=== PATIENT | female | born 1970 | race Caucasian/White ===

== ENCOUNTER 2020-10-09 08:06 | Day surgery (SDCO) | payer OTHER ==
[~2020-10-09] VITALS: Ht 165.1 cm; Wt 65.8 kg
[~2020-10-09 08:06] MED LIST: ALDACTONE25 MG PO; EFFEXOR-XR 75 M75 MG PO; IMITREX50 MG PO; TOPROL XL 25MG25 MG PO; TRAZODONE 50MG50 MG PO
[2020-10-09 08:37] LABS: HCG (URINE) SCREEN NEGATIVE (NEGATIVE)
[2020-10-09 08:53] LABS: HCT 37.2 % (37.0-47.0); HGB 12.6 g/dl (12.5-16.0); MCH 30.7 pg (25.0-31.0); MCHC 33.9 g/dL (32.0-36.0); MCV 90.5 fL (78.0-100.0); MPV 10.2 fL (6.0-9.5); RBC 4.11 M/uL (4.20-5.40); RDW 12.2 % (11.5-14.0); WBC 8.4 K/uL (4.0-10.5)
[2020-10-09 09:27] LABS: BUN/CREAT RATIO (CALC) 24.7 RATIO; CREATININE 0.73 mg/dL (0.51-0.95)
[2020-10-10 06:13] LABS: BASOPHIL 0.2 % (0-2); EOSINOPHIL 0.5 % (0-5); HGB 10.2 g/dl (12.5-16.0); LYMPHOCYTE 25.5 % (15-48); MCH 30.2 pg (25.0-31.0); MCHC 31.9 g/dL (32.0-36.0); MONOCYTE 7.2 % (0-12); MPV 10.4 fL (6.0-9.5); NEUTROPHIL 66.3 % (41-80); NRBC 0; PLT 295 K/uL (150-400); RBC 3.38 M/uL (4.20-5.40); RDW 12.3 % (11.5-14.0); WBC 12.9 K/uL (4.0-10.5)
[2020-10-10 06:14] LABS: MCV 94.7 fL (78.0-100.0)
[2020-10-10] MEDS ORDERED: MOTRIN600 MG PO (09:02)
[2020-10-10] MEDS ORDERED: COLACE100 MG PO (09:02)
[2020-10-10] MEDS ORDERED: PERCOCET 5-3251 EACH PO (09:02)
== END 2020-10-10 13:08 | disposition home or self-care (01) ==
LOC: FSDC 08:06 → FMS 09:00
PROVIDERS: ADMIT Obstetrics & Gynecology
DX: N72 Inflammatory disease of cervix uteri (principal); N80.0 Endometriosis of uterus; N73.6 Female pelvic peritoneal adhesions (postinfective); N87.0 Mild cervical dysplasia; I10 Essential (primary) hypertension; G43.909 Migraine, unspecified, not intractable, without status migrainosus; Z79.899 Other long term (current) drug therapy
CPT/HCPCS: 36415; 80048; 84703; 85025; 86850; 86900; 86901; G0378; J0690; J1100; J1170; J1885; J2250; J2405; J2704; J2710; J3010; J7120; J7121